=== PATIENT | female | born 1990 | race Caucasian/White ===

== ENCOUNTER 2023-02-16 15:47 | Emergency (ER) | payer SELFPAY ==
[2023-02-16 15:54] VITALS: BP 124/80; PULSE 83; RESP 17; TEMP 37.1; O2SAT 100; BMI 29.1
[2023-02-16 16:26] LABS: Basophils % 0.6 %; Eosinophils # 0.1 10^3/uL (0.0-0.8); Eosinophils % 1.5 %; Hematocrit 38.8 % (36-47); Lymphocytes # 2.7 10^3/uL (0.8-4.8); Lymphocytes % 37.4 %; Mean Corpuscular HGB Conc 32.7 g/dL (30-55); Mean Corpuscular Hemoglobin 28.8 pg (27-33); Mean Platelet Volume 9.4 fL (7.4-10.4); Monocytes # 0.4 10^3/uL (0.2-0.9); Neutrophils # 3.88 10^3/uL (1.8-7.7); Neutrophils % 54.4 %; Nucleated Red Blood Cells % 0 %; Platelet Count 296 10^3/cmm (157-399); Red Blood Count 4.41 10^6/uL (3.85-5.65); Red Cell Distribution Width 12.5 % (12.1-15.1); White Blood Count 7.14 10^3/uL (3.29-11.43)
--- NOTE | 2023-02-16 16:39 | ED_ITS ---
HPI - Abdominal Pain 2 General: Chief Complaint: Abdominal Pain Stated Complaint: ABD pain Time Seen by Provider: 02/16/23 16:39 Source: patient Mode of arrival: ambulatory History of Present Illness: 32-year-old female who presents emergenc y room complaining of suprapubic abdominal discomfort that is intermittent comes in waves and spasms has been going on throughout the day she was able to work throughout the day but is continued to worsen she. She denies dysuria urgency or frequency no fever sweats or chills no vomiting no diarrhea. Previous hysterectomy bilateral salpingo oophorectomy. MD elicited complaint: abdominal pain Onset (ago): hour(s) Pain Consistency: constant Radiation: none Exacerbating factors: nothing Relieving factors: nothing Associated Symptoms: Reports other; Denies anorexia, belching, bloating, change in bowel habits, change in stool character, chills, coffee ground emesis, constipation, GI cramping, diarrhea, dyspepsia, dysuria, excessive flatus, fever(s), heartburn, hematochezia, hematuria, hematemesis, fecal incontinence, loose stools, melena, nausea, poor appetite, syncope and vomiting Review of Systems 2 Const: Denies: fever(s) or chills ENMT: Denies: throat pain, ear or mastoid pain, nasal discharge or nasal congestion Card: Denies: chest pain or syncope Resp: Denies: dyspnea GI: Reports: other; Denies: abdominal pain, nausea, vomiting, hematemesis, coffee ground emesis, heartburn, diarrhea, constipation, bloating, GI cramping, belching, excessive flatus, fecal incontinence, change in bowel habits, change in stool character, hematochezia or melena : Denies: dysuria, urinary frequency, urinary urgency or hematuria Musc: Denies: neck pain or back pain Skin/Breast: Denies: rash Physical Exam 2 Const: COMMON NORMALS: no acute distress GENERAL APPEARANCE: cooperative and comfortable ORIENTATION/CONSCIOUSNESS: Yes awake, Yes oriented to person, Yes oriented to place and Yes oriented to time HENMT: COMMON NORMALS: normocephalic, atraumatic, hearing grossly normal bilaterally, external ears normal, EAC's normal, TM's normal bilaterally and Normal nasal mucous membranes and turbinates present HEAD & SCALP: n ormocephalic and atraumatic NOSE: Normal nasal mucous membranes and turbinates present EXTERNAL EAR: Yes external ears normal EXTERNAL AUDITORY CANAL: EAC's normal TYMPANIC MEMBRANE: TM's normal bilaterally Eye: COMMON NORMALS: Equal, round and reactive pupils present, EOMs intact bilaterally, conjunctivae normal and no scleral icterus CONJUNCTIVA: Yes conjunctivae normal PUPIL: Yes Equal, round and reactive pupils present Neck/C-Spine: COMMON NORMALS: full ROM, no lymphadenopathy, supple and no JVD Lymph: LYMPHATIC: no lymphadenopathy noted and no lymphedema noted Resp: COMMON NORMALS: normal respiratory effort, No retractions, No use of accessory muscles and clear to auscultation bilaterally AUSCULTATION: clear to auscultation bilaterally Cardio: COMMON NORMALS: no JVD, regular rate, regular rhythm and No murmurs present (Cardio) RATE: regular rate RHYTHM: regular rhythm GI: COMMON NORMALS: Soft to palpation and No hepatosplenomegaly present A USCULTATION: Yes normoactive bowel sounds PALPATION: Yes Soft to palpation, No Tenderness to palpation present (GI), No Guarding due to palpation present (GI) and Yes No hepatosplenomegaly present Extremity: COMMON NORMALS: normal to inspection, capillary refill normal, no clubbing, cyanosis or edema, no calf tenderness and no pedal edema Neuro: SENSORIUM/ORIENTATION: Yes oriented to person, Yes oriented to place and Yes oriented to time Skin: COMMON NORMALS: no rashes or lesions noted GENERAL SKIN EXAM: no rashes or lesions noted Course 2 Vital Signs: Vital signs: Vital Signs Temperature 98.7 F 02/16/23 15:54 Pulse Rate 83 02/16/23 15:54 Respiratory Rate 17 02/16/23 15:54 Blood Pressure 124/80 02/16/23 15:54 Pulse Oximetry 100 02/16/23 15:54 Oxygen Delivery Me thod Room Air 02/16/23 15:54 MDM - Abdominal Pain Medical Decision Making Labs reviewed. Abdominal exam benign slight elevation in alk phos but otherwise labs are otherwise unremarkable. UA no sign of cystitis no hematuria. Patient is feeling better will discharge home clinical diet 24 to 48 hours advance as tolerated antiemetics as needed if persist follow-up. Medical Records I reviewed the patient's medical records. Lab Data I reviewed the patient's lab results. 02/16/23 16:15 02/16/23 16:15 Labs/Radiology: Laboratory Results WBC 7.14 10^3/uL (3.29-11.43) 02/16/23 16:15 RBC 4.41 10^6/uL (3.85-5.65) 02/16/23 16:15 Hgb 12.70 g/dL (11.27-16.99) 02/16/23 16:15 Hct 38.8 % (36-47) 02/16/23 16:15 MCV 88.0 fl (85-98) 02/16/23 16:15 MCH 28.8 pg (27-33) 02/16/23 16:15 MCHC 32.7 g/dL (30-55) 02/16/23 16:15 RDW 12.5 % (12.1-15.1) 02/16/23 16:15 Plt Count 296 10^3/cmm (157-399) 02/16/23 16:15 MPV 9.4 fL (7.4-10.4) 02/16/23 16:15 Neut % (Auto) 54.4 % 02/16/23 16:15 Lymph % (Auto) 37.4 % 02/16/23 16:15 [place] % (Auto) 6.0 % 02/16/23 16:15 Eos % (Auto) 1.5 % 02/16/23 16:15 Baso % (Auto) 0.6 % 02/16/23 16:15 Neut # (Auto) 3.88 10^3/uL (1.8-7.7) 02/16/23 16:15 Lymph # (Auto) 2.7 10^3/uL (0.8-4.8) 02/16/23 16:15 [place] # (Auto) 0.4 10^3/uL (0.2-0.9) 02/16/23 16:15 Eos # (Auto) 0.1 10^3/uL (0.0-0.8) 02/16/23 16:15 Baso # (Auto) 0.0 10^3/uL (0.0-0.1) 02/16/23 16:15 Nucleated RBC % (auto) 0 % 02/16/23 16:15 Nucleated RBCs # 0.0 /100WBC 02/16/23 16:15 Sodium 137 mmol/L (136-145) 02/16/23 16:15 Potassium 3.8 mmol/L (3.5-5.1) 02/16/23 16:15 Chloride 101 mmol/L (98-107) 02/16/23 16:15 Carbon Dioxide 25 mmol/L (22-29) 02/16/23 16:15 Anion Gap 14.8 (5-19) 02/16/23 16:15 BUN 13 mg/dL (6-20) 02/16/23 16:15 Creatinine 0.7 mg/dL (0.5-0.9) 02/16/23 16:15 GFR Calculation 95.8 mL/min (90-130) 02/16/23 16:15 Glucose 110 mg/dL (65-115) 02/16/23 16:15 Calculated Osmolality 285 mOsm/kg (285-295) 02/16/23 16:15 Calcium 9.5 mg/dL (8.5-10.5) 02/16/23 16:15 Total Bilirubin 0.2 mg/dL (0.15-1.2) 02/16/23 16:15 AST 20 U/L (0-32) 02/16/23 16:15 ALT 21 U/L (0-33) 02/16/23 16:15 Alkaline Phosphatase 140 U/L (35-105) H 02/16/23 16:15 Total Protein 7.1 g/dL (6.6-8.7) 02/16/23 16:15 Albumin 4.2 g/dL (3.5-5.2) 02/16/23 16:15 Globulin 2.9 g/dL (1.3-4.6) 02/16/23 16:15 Lipase 38 U/L (13-60) 02/16/23 16:15 HCG, Qual Negative (Negative) 02/16/23 16:15 Urine Color Yellow (Yellow) 02/16/23 16:52 Urine Appearance Sl hazy (CLEAR) A 02/16/23 16:52 Urine pH 7 (5-7) 02/16/23 16:52 Ur Specific [place] 1.015 (1.005-1.030) 02/16/23 16:52 Urine Protein Neg (Negative) 02/16/23 16:52 Urine Glucose (UA) Norm (Normal) 02/16/23 16:52 Urine Ketones Negative (Negative) 02/16/23 16:52 Urine Blood Neg (Negative) 02/16/23 16:52 Urine Nitrate Negative (Negative) 02/16/23 16:52 Urine Bilirubin Neg (Negative) 02/16/23 16:52 Urine Urobilinogen Norm mg/dL (Negative) 02/16/23 16:52 Ur Leukocyte Esterase Negative (Negative) 02/16/23 16:52 Urine RBC 0-4 /hpf (0-2) H 02/16/23 16:52 Urine WBC 0-4 /hpf (0-5) H 02/16/23 16:52 Ur Squamous Epith Cells 0-4 /hpf (0-5) H 02/16/23 16:52 Amorphous Sediment Not Reportable 02/16/23 16:52 Urine Bacteria 1+ /hpf (NONE) H 02/16/23 16:52 Urine Mucus 1+ /hpf 02/16/23 16:52 All radiology interpretation(s) finalized by discharge Discharge Plan Discharge Patient Disposition: Home Clinical Impression: Abdominal pain Condition: Stable Prescriptions: New promethazine 25 mg tablet 25 mg PO Q6H PRN (Reason: nausea and vomiting) Qty: 20 0RF Discharge Orders: Discharge ED (Routine); Ordered 02/16/23 Ordered By: Hebert Valera Discharge Diet: Clear Liquid Discharge Activity: Increase activity as tolerated Patient Instructions: Abdominal Pain (ED), Opioid Safety, Pain Management Activity Restrictions/Additional Instructions: Thank you for choosing [facility] for your healthcare needs today. Please realize this is an emergency room and that we are providing you with a medical screening exam and this may not be complete and all inclusive of all the testing and or work up that you may need to determine your ailment or severity of your illness. It is very important that you follow up as instructed or that you return to the Emergency Department should you have concerns or if your condition changes or worsens in any way. Coding Level of Care Code ED [employer] Worker for Trent Colmenares
[2023-02-16 16:50] LABS: Alanine Aminotransferase 21 U/L (0-33); Albumin Level 4.2 g/dL (3.5-5.2); Alkaline Phosphatase 140 U/L (35-105); Anion Gap 14.8 (5-19); Aspartate Amino Transferase 20 U/L (0-32); Blood Urea Nitrogen 13 mg/dL (6-20); Calcium 9.5 mg/dL (8.5-10.5); Carbon Dioxide 25 mmol/L (22-29); Chloride 101 mmol/L (98-107); Globulin 2.9 g/dL (1.3-4.6); Glomerular Filtration Rate 95.8 mL/min (90-130); Glucose 110 mg/dL (65-115); Lipase 38 U/L (13-60); Osmolality Calculated 285 mOsm/kg (285-295); Potassium 3.8 mmol/L (3.5-5.1); Sodium 137 mmol/L (136-145); Total Bilirubin 0.2 mg/dL (0.15-1.2); Total Protein 7.1 g/dL (6.6-8.7)
[2023-02-16 17:03] LABS: HCG, Serum Qual Negative (Negative)
[2023-02-16 17:16] LABS: Add Urine Microscopic? YES; Bilirubin Urine Neg (Negative); Blood Urine Neg (Negative); Glucose Urine UA Norm (Normal); Ketones Urine Negative (Negative); Leukocyte Esterase Urine Negative (Negative); Nitrate Urine Negative (Negative); Protein Urine Neg (Negative); Specific Gravity, Urine 1.015 (1.005-1.030); Urine Appearance SL Hazy (CLEAR); Urine Color Yellow (Yellow); Urobilinogen Urine Norm (Negative); pH Urine 7 (5-7)
[2023-02-16 17:34] LABS: Add Urine Culture? No; Bacteria Urine 1+ /hpf; Mucus Urine 1+ /hpf; RBC Urine 0-4 /hpf (0-2); Squamous Epithelial Cell Urine 0-4 /hpf (0-5); WBC Urine 0-4 /hpf (0-5)
[2023-02-16] MEDS: sodium chloride 0.9% 1,000 ML 999 ML IV (17:56)
== END 2023-02-16 18:54 | disposition home or self-care (01) ==
PROVIDERS: Emergency Medicine; Emergency Provider Family Medicine
DX: R10.30 Lower abdominal pain, unspecified (principal)
CPT/HCPCS: 36415; 80053; 81001; 83690; 84703; 85025; 99284; J7030

== ENCOUNTER 2023-03-28 14:35 | Emergency (ER) | payer SELFPAY ==
--- NOTE | 2023-03-28 14:36 | ECG_ITS ---
[facility] Test Date: 2023-03-28 Pat Name: Lisa Butt Department: Room: Gender: Female Official Greeter: : 1990 Requested By: Jose Matos Order Number: [id number] Taiwo MD: Randee Randall M.D. Measurements Intervals [place] Rate: 72 P: 61 IN: 160 QRS: 81 QRSD: 94 T: 76 QT: 353 QTc: 389 Interpretive Statements SINUS RHYTHM POSSIBLE RIGHT VENTRICULAR CONDUCTION DELAY [RSR (QR) IN V1/V2] No previous ECG available for comparison Electronically Signed On 03-28-2023 19:38:12 BARREL INSPECTOR by Randee Randall M.D. [id number]
[2023-03-28 14:42] VITALS: BP 138/83; PULSE 99; RESP 16; TEMP 36.6; O2SAT 100; BMI 29.1
[2023-03-28 15:13] LABS: Basophils # 0.1 10^3/uL (0.0-0.1); Basophils % 0.6 %; Eosinophils # 0.1 10^3/uL (0.0-0.8); Eosinophils % 0.9 %; Lymphocytes % 24.7 %; Mean Corpuscular HGB Conc 32.9 g/dL (30-55); Mean Corpuscular Hemoglobin 28.4 pg (27-33); Mean Corpuscular Volume 86.4 fl (85-98); Mean Platelet Volume 9.4 fL (7.4-10.4); Monocytes # 0.4 10^3/uL (0.2-0.9); Monocytes % 4.3 %; Neutrophils # 5.68 10^3/uL (1.8-7.7); Neutrophils % 69.3 %; Nucleated Red Blood Cells % 0 %; Platelet Count 296 10^3/cmm (157-399); Red Blood Count 4.86 10^6/uL (3.85-5.65); Red Cell Distribution Width 12.4 % (12.1-15.1); White Blood Count 8.19 10^3/uL (3.29-11.43)
--- NOTE | 2023-03-28 15:20 | CT_ITS ---
WS: [id number] CT HEAD NONCONTRAST HISTORY: fall TECHNIQUE: Contiguous axial imaging performed through the brain in 2.5 mm imaging. Bone and soft tiss ue windows. Sagittal and coronal reformats reviewed. All CT scans at [facility] use at least one of these dose optimization techniques: automated exposure control; mA and/or kV adjustment per pa tient size (includes targeted exams where dose is matched to clinical indication); or iterative recon struction. DLP: 1016.75 mGy.cm COMPARISON: None available. No acute intracranial hemorrhage, midline shift or mass effect. No atrophy or prior infarcts or herniation. Ventricles: Normal size with no hydrocephalus. Paranasal sinuses: As visualized are clear. Mastoid air cells: Well pneumatized. Calvarium and scalp: Skull is intact with no soft tissue edema or swelling. IMPRESSION: Negative head CT.
--- NOTE | 2023-03-28 15:20 | XR_ITS ---
WS: [id number] Exam: XR lumbar spine 2-3V* [id number] Date/Time of Exam: 03/28/2023 3:20 PM Reason For Exam: fall No fracture or dislocation. There is straightening. Disc spaces are preserved. Posterior elements are intact. SI joints are open. IMPRESSION: 1. No fracture or malalignment. Straightening.
--- NOTE | 2023-03-28 15:25 | ED_ITS ---
HPI - Syncope 2 General: Chief Complaint: Syncope Stated Complaint: passed out, low back pain Time Seen by Provider: 03/28/23 15:14 Source: patient Mode of arrival: ambulatory Limitations: no limitations History of Present Illness: 32-year-old female who was at work state s she was washing her hands in the bathroom and passed out. Does not remember what happened she woke up on the ground she believes she did hit her head and back because she now has a headache and low back pain. She denies any symptoms before the syncopal events denies any vomiting or diarrhea. Denies any chest pain Associated symptoms: Reports headache(s); Deny abdominal pain, chest pain, fever(s) or nausea Review of Systems 2 Const: Denies: fever(s), chills, body aches or change in appetite ENMT: Denies: throat pain or dental pain Card: Reports: syncope; Denies: chest pain Resp: Denies: dyspnea GI: Denies: abdominal pain, nausea, vomiting or diarrhea Musc: Reports: back pain; Denies: neck pain Skin/Breast: Denies: rash Neuro: Reports: headache(s) Physical Exam 2 Const: COMMON NORMALS: no acute distress, patient oriented x3 and healthy appearing HENMT: COMMON NORMALS: normocephalic and atraumatic HEAD & SCALP: n ormocephalic and atraumatic Eye: COMMON NORMALS: Equal, round and reactive pupils present and EOMs intact bilaterally PUPIL: Yes Equal, round and reactive pupils present Neck/C-Spine: COMMON NORMALS: full ROM and supple Chest: COMMONS NORMALS: normal inspection of the chest and normal palpation of entire chest wall Resp: COMMON NORMALS: normal respiratory effort, No retractions, No use of accessory muscles and clear to auscultation bilaterally AUSCULTATION: clear to auscultation bilaterally Cardio: COMMON NORMALS: regular rate, regular rhythm and No murmurs present (Cardio) RATE: regular rate RHYTHM: regular rhythm GI: COMMON NORMALS: Normal to inspection, nondistended, normoactive bowel sounds present, Soft to palpation, non-tender and no masses PALPATION: Yes Soft to palpation Back/Pelvis: OTHER: Tenderness to right lower back Extremity: COMMON NORMALS: normal to inspection and full ROM Neuro: COMMON NORMALS: patient oriented x3, moves all extremities and no focal motor deficits Psych: COMMON NORMALS: mental status grossly normal, Normal thought process present and cooperative THOUGHT PROCESS: Normal thought process present Skin: COMMON NORMALS: no rashes or lesions noted and no wounds GENERAL SKIN EXAM: no rashes or lesions noted Course 2 Vital Signs: Vital signs: Vital Signs Temperature 97.9 F 03/28/23 14:42 Pulse Rate 85 03/28/23 15:44 Respiratory Rate 16 03/28/23 14:42 Blood Pressure 120/74 03/28/23 15:44 Pulse Oximetry 100 03/28/23 15:44 Oxygen Delivery Me thod Room Air 03/28/23 15:44 MDM - Syncope Medical Decision Making Patient presents after syncopal event she is well-appearing here is likely vagal blood work is normal she complained of back pain and headache after her fall scan and x-ray are normal she is stable for discharge she is follow-up with PCP and return if worsening. Medical Records I reviewed the patient's medical records. Lab Data I reviewed the patient's lab results. 03/28/23 15:07 03/28/23 15:07 Laboratory Results WBC 8.19 10^3/uL (3.29-11.43) 03/28/23 15:07 RBC 4.86 10^6/uL (3.85-5.65) 03/28/23 15:07 Hgb 13.80 g/dL (11.27-16.99) 03/28/23 15:07 Hct 42.0 % (36-47) 03/28/23 15:07 MCV 86.4 fl (85-98) 03/28/23 15:07 MCH 28.4 pg (27-33) 03/28/23 15:07 MCHC 32.9 g/dL (30-55) 03/28/23 15:07 RDW 12.4 % (12.1-15.1) 03/28/23 15:07 Plt Count 296 10^3/cmm (157-399) 03/28/23 15:07 MPV 9.4 fL (7.4-10.4) 03/28/23 15:07 Neut % (Auto) 69.3 % 03/28/23 15:07 Lymph % (Auto) 24.7 % 03/28/23 15:07 [place] % (Auto) 4.3 % 03/28/23 15:07 Eos % (Auto) 0.9 % 03/28/23 15:07 Baso % (Auto) 0.6 % 03/28/23 15:07 Neut # (Auto) 5.68 10^3/uL (1.8-7.7) 03/28/23 15:07 Lymph # (Auto) 2.0 10^3/uL (0.8-4.8) 03/28/23 15:07 [place] # (Auto) 0.4 10^3/uL (0.2-0.9) 03/28/23 15:07 Eos # (Auto) 0.1 10^3/uL (0.0-0.8) 03/28/23 15:07 Baso # (Auto) 0.1 10^3/uL (0.0-0.1) 03/28/23 15:07 Nucleated RBC % (auto) 0 % 03/28/23 15:07 Nucleated RBCs # 0.0 /100WBC 03/28/23 15:07 Sodium 135 mmol/L (136-145) L 03/28/23 15:07 Potassium 4.1 mmol/L (3.5-5.1) 03/28/23 15:07 Chloride 102 mmol/L (98-107) 03/28/23 15:07 Carbon Dioxide 22 mmol/L (22-29) 03/28/23 15:07 Anion Gap 15.1 (5-19) 03/28/23 15:07 BUN 14 mg/dL (6-20) 03/28/23 15:07 Creatinine 0.6 mg/dL (0.5-0.9) 03/28/23 15:07 GFR Calculation 114.4 mL/min (90-130) 03/28/23 15:07 Glucose 102 mg/dL (65-115) 03/28/23 15:07 Calculated Osmolality 281 mOsm/kg (285-295) L 03/28/23 15:07 Calcium 9.8 mg/dL (8.5-10.5) 03/28/23 15:07 Total Bilirubin 0.3 mg/dL (0.15-1.2) 03/28/23 15:07 AST 16 U/L (0-32) 03/28/23 15:07 ALT 15 U/L (0-33) 03/28/23 15:07 Alkaline Phosphatase 132 U/L (35-105) H 03/28/23 15:07 Total Protein 7.7 g/dL (6.6-8.7) 03/28/23 15:07 Albumin 4.4 g/dL (3.5-5.2) 03/28/23 15:07 Globulin 3.3 g/dL (1.3-4.6) 03/28/23 15:07 HCG, Qual Negative (Negative) 03/28/23 15:07 All radiology interpretation(s) finalized by discharge EKG Data EKG 1: I personally reviewed and interpreted this EKG as follows: EKG interpretation date: 03/28/23 EKG interpretation time: 15:21 Interpretation: nsr hr [address] or t wave abnormalities qrs 94 qtc 378 Discharge Plan Discharge Patient Disposition: Home Clinical Impression: Syncope Qualifiers: Syncope type: unspecified Qualified Code(s): R55 - Syncope and collapse Contusion of lower back Qualifiers: Encounter type: initial encounter Qualified Code(s): S30.0XXA - Contusion of lower back and pelvis, initial encounter Condition: Stable Prescriptions: New naproxen [Naprosyn] 500 mg tablet 500 mg PO BID PRN (Reason: pain) Qty: 20 0RF No Action promethazine 25 mg tablet 25 mg PO Q6H PRN (Reason: nausea and vomiting) Qty: 20 0RF Discharge Orders: Discharge ED (Routine); Ordered 03/28/23 Ordered By: Jose Matos Discharge Diet: Advance as tolerated Discharge Activity: Resume usual activity Patient Instructions: Syncope (ED) Coding Level of Care Code ED Equity Manager for Trent Colmenares
[2023-03-28 15:34] LABS: Alanine Aminotransferase 15 U/L (0-33); Albumin Level 4.4 g/dL (3.5-5.2); Alkaline Phosphatase 132 U/L (35-105); Anion Gap 15.1 (5-19); Aspartate Amino Transferase 16 U/L (0-32); Blood Urea Nitrogen 14 mg/dL (6-20); Calcium 9.8 mg/dL (8.5-10.5); Carbon Dioxide 22 mmol/L (22-29); Chloride 102 mmol/L (98-107); Globulin 3.3 g/dL (1.3-4.6); Glomerular Filtration Rate 114.4 mL/min (90-130); Glucose 102 mg/dL (65-115); Osmolality Calculated 281 mOsm/kg (285-295); Potassium 4.1 mmol/L (3.5-5.1); Sodium 135 mmol/L (136-145); Total Bilirubin 0.3 mg/dL (0.15-1.2); Total Protein 7.7 g/dL (6.6-8.7)
[2023-03-28 15:36] LABS: HCG, Serum Qual Negative (Negative)
[2023-03-28] MEDS: HYDROcodone-acetaminophen 5-325 mg Tablet 1 TAB PO (15:43)
[2023-03-28 15:44] VITALS: BP 120/74; PULSE 85; O2SAT 100
[2023-03-28 16:11] VITALS: BP 117/80; PULSE 84; O2SAT 100
== END 2023-03-28 16:12 | disposition home or self-care (01) ==
PROVIDERS: Emergency Provider Emergency Medicine
DX: R55 Syncope and collapse (principal); S30.0XXA Contusion of lower back and pelvis, initial encounter; W18.39XA Other fall on same level, initial encounter; Y93.E8 Activity, other personal hygiene; Y99.0 Civilian activity done for income or pay; R51.9 Headache, unspecified
CPT/HCPCS: 36415; 70450; 72100; 80053; 84703; 85025; 93005; 99285